=== PATIENT | female | born 1930 | race Caucasian/White ===

== ENCOUNTER → 2017-12-23 | Outpatient (CLI) | payer MEDICARE ==
[2013-12-24 15:02] VITALS: BMI 24.7
[~2017-12-23] MED LIST: ACE325 PO; ACE500 PO; ACET650T40 PO; AMLO-96 PO; AMLO2.5T74 PO; AMLO2.5T75 PO; ANTI1CAP3 PO; ASCO-599 PO; ASCO500C9 PO; CALC-423 PO; CALC-734 PO; CALC500T76 PO; CHOL100052 PO; CHOL200021 PO; CHOL200022 PO; CHOL200025 PO; CHOL500045 PO; CITA-137 PO; CYA100 PO; DEN60I SUBQ; FERR-1 PO; FERR-53 PO; FLU IM; FLU60SYR30 IM ONLY; FURO-43 PO; HYDR25 PO; IRON18TA2 PO; LACT1CAP6 PO; LEVO500T83 PO; LOR5 PO; LOR5/325 PO; LOSA100T67 PO; LOSA50TA72 PO; MAX75 PO; MET4 PO; METO25TA23 PO; METO25TA91 PO; METR-160 PO; MIR; MIR15 PO; MIRAPEX PO; MORIR15 PO; MULT-820 PO; NAPR220C12 PO; NIT3 SL; NYST15CR32 TP; OMEP-125 PO; OMEP40CA48 PO; PAN40 PO; PNEU0.5D3 IM; RED600CA15 PO; SPI25 PO; SPIR50TA31 PO; SUC1 PO; TETR-30 PO; TRAM-420 PO; TRAM-627 PO; TUM500 PO; VIT-9 PO; VIT1CAPS9 PO; [UNRECOGNIZED DRUG - CODE] PO
[2017-12-23 09:34] LABS: PLATELET COUNT, AUTOMATED 219 K/uL (150-450)
== END ==
LOC: LAB 08:53
PROVIDERS: ATTEND Family Medicine
DX: E55.9 Vitamin D deficiency, unspecified (principal); I10 Essential (primary) hypertension
CPT/HCPCS: 36415; 82040; 82247; 82306; 82310; 82374; 82435; 82565; 82947; 84075; 84132; 84155; 84295; 84450; 84460; 84520; 85025